=== PATIENT | male | born 1950 | race Caucasian/White ===

== ENCOUNTER → 2016-09-08 | Outpatient (CLI) | payer BC ==
--- NOTE | 2016-09-08 12:38 | XR ---
EXAMINATION TYPE: XR chest 2V DATE OF EXAM: 09/08/2016 12:13 PM COMPARISON: 12/22/2012 TECHNIQUE: PA and lateral views submitted. HISTORY: COPD, annual exam FINDINGS: The lungs are clear and there is no pneumothorax, pleural effusion, or focal pneumonia. Arthropathy of the shoulders noted. IMPRESSION: 1. No acute process.
== END | disposition home or self-care (01) ==
LOC: RADXRMAIN 11:55
PROVIDERS: ATTEND Family Medicine
DX: J44.9 Chronic obstructive pulmonary disease, unspecified (principal)
CPT/HCPCS: 71020

== ENCOUNTER → 2017-01-06 | Outpatient (CLI) | payer MEDICARE ==
--- NOTE | 2017-01-06 09:31 | US ---
EXAMINATION TYPE: US duplex aorta DATE OF EXAM: 01/06/2017 COMPARISON: NONE CLINICAL HISTORY: Z13.9 screening. screening for AAA EXAM MEASUREMENTS: Abdominal Aorta: Proximal: 2.0 x 2.1cm Mid: 1.5 x 1.4cm Distal: 1.9 x 2.1cm Bifurcation: Right: 1.0 x 0.9cm Left: 1.2 x 1.3cm *Technical limitations due to large amount of overlying bowel content. Portions of aorta are obscured . Calcifications noted throughout aorta. IMPRESSION: Limited study without definite aneurysm seen.
== END | disposition home or self-care (01) ==
LOC: RADUSWWP 08:59
PROVIDERS: ATTEND Family Medicine
DX: Z13.9 Encounter for screening, unspecified (principal)
CPT/HCPCS: 93979

== ENCOUNTER → 2018-06-08 | Outpatient (CLI) | payer MEDICARE ==
--- NOTE | 2018-06-08 11:16 | ECHOS ---
STRESS ECHOCARDIOGRAM DATE OF SERVICE: 06/08/2018 INDICATIONS: Palpitations, chest pain. MEDICATIONS: Crestor, Aspirin. BASELINE HEART RATE: 75 BASELINE BLOOD PRESSURE: 123/96 MAXIMUM HEART RATE: 136 MAXIMUM BLOOD PRESSURE: 209/52 85% MPHR: 130 100% MPHR: 153 METS: 11 MAXIMUM STAGE REACHED: IV TOTAL EXERCISE TIME: 10 minutes CLINICAL INFORMATION: Baseline EKG shows sinus rhythm, normal axis, normal intervals with poor R-wave progression. Patient exercised on Uche protocol for a total of 10 minutes achieving 11 METs, 89% of predicted maximal heart rate without chest pain. At peak exercise, there was [address]-segment depression noted in the inferolateral leads. Baseline echo shows normal left ventricular size, wall motion and systolic function. Postexercise, there is normal hyperdynamic response of all segments of myocardium noted. The patient has significant prolapse of the posterior mitral leaflet. CONCLUSIONS: 1. Excellent exercise tolerance. 2. Abnormal stress test by EKG criteria. 3. No evidence of ischemia. 4. Prolapse of the posterior mitral leaflet noted. Consider a 2D echo and transesophageal echo if clinically indicated. MMODL / IJN: [id number] /
--- NOTE | 2018-06-17 11:55 | HM ---
HOLTER MONITOR REPORT A 24-hour Holter monitor INDICATION: Palpitation. The patient was monitored for 24 hours. The baseline rhythm appeared to be a sinus mechanism with a minimum heart rate of 51 beats per minute, max heart rate 128 beats per and average heart rate of 74 beats per minute. Ventricular ectopic events presented in less than 1% of the total beats count and presented as an isolated PVCs and trigeminy. Supraventricular ectopic events presented in less than 1% of total beats count and presented as an isolated PACs. No evidence of sinus pause or sinus arrest. CONCLUSION: 1. Sinus rhythm as a baseline mechanism. 2. Rare ventricular ectopic events. 3. Rare supraventricular ectopic events. 4. There is no evidence of any tachy or bradyarrhythmia noted. 5. The patient did not have any evidence of sinus pause or sinus arrest. 6. The patient did not have any advanced AV block. MMRE / LI: [id number] /
== END ==
LOC: RADNMMAIN 09:52
PROVIDERS: ATTEND Family Medicine
DX: R00.2 Palpitations (principal)
CPT/HCPCS: 93225; 93226; 93351

== ENCOUNTER → 2018-06-08 | Outpatient (CLI) | payer MEDICARE ==
[2018-06-08 15:53] LABS: LDL Cholesterol,Calculated 129.4 mg/dL (0.0-131.0); VLDL Calculation 26.6 mg/dL (5.00-40.00)
== END | disposition home or self-care (01) ==
LOC: LABWHC1 10:55
PROVIDERS: ATTEND Psychiatry & Neurology Neurology
DX: E78.5 Hyperlipidemia, unspecified (principal)
CPT/HCPCS: 36415; 80061

== ENCOUNTER → 2018-08-09 | Outpatient (CLI) | payer MEDICARE ==
--- NOTE | 2018-08-09 15:42 | XR ---
EXAMINATION TYPE: XR chest 2V DATE OF EXAM: 08/09/2018 COMPARISON: 09/08/2016 TECHNIQUE: PA and lateral views submitted. HISTORY: Cough and lower rib FINDINGS: The lungs are clear and there is no pneumothorax, pleural effusion, or focal pneumonia. No overt fa ilure. Small lucent lesion involving the right humeral head stable from 2017 and likely benign. This has a nonspecific appearance and could be correlated with bone scan as clinically warranted. IMPRESSION: 1. No acute process.
== END | disposition home or self-care (01) ==
LOC: RADXRMAIN 15:21
PROVIDERS: ATTEND Family Medicine
DX: R07.81 Pleurodynia (principal)
CPT/HCPCS: 71046

== ENCOUNTER → 2018-08-17 | Outpatient (CLI) | payer MEDICARE ==
--- NOTE | 2018-08-17 16:43 | NM ---
EXAMINATION TYPE: NM bone scan whole body DATE OF EXAM: 08/17/2018 COMPARISON: Chest x-ray dated 08/09/2018 HISTORY: Abnormal chest x-ray, bone cyst Delayed whole-body scanning was performed following the injection of 25.2 mCi Tc 99m MDP. Images acq uired 4 hours post injection. FINDINGS: There is increased uptake within the proximal right humerus which may correlate with the focus seen o n chest x-ray the proximal humerus. There is a focus of increased uptake also noted at the anterior l eft eighth rib. Uptake in the knees, wrists, elbows, shoulders is likely degenerative. Soft tissue up take is normal. IMPRESSION: Correlate for possible history of trauma to the left eighth rib. Nonspecific increased mild uptake in the proximal right humerus, shoulder MRI may be of benefit. Consider dedicated right shoulder imagin g.
== END | disposition home or self-care (01) ==
LOC: RADNMMAIN 11:02
PROVIDERS: ATTEND Family Medicine
DX: M85.60 Other cyst of bone, unspecified site (principal)
CPT/HCPCS: 78306; A9503

== ENCOUNTER → 2019-01-30 | Outpatient (CLI) | payer MEDICARE ==
--- NOTE | 2019-01-30 12:42 | MR ---
EXAMINATION TYPE: MR shoulder RT wo con DATE OF EXAM: 01/30/2019 COMPARISON: None HISTORY: Right shoulder pain TECHNIQUE: Multiplanar, multisequence imaging of the right shoulder is performed without contrast. FINDINGS: Rotator Cuff: Abnormal increased signal present within the rotator cuff peripherally. No evident retr action. Acromioclavicular Joint: Hypertrophic changes causes mass effect on the musculotendinous junction of supraspinatus, there is fluid signal subacromial subdeltoid bursa Glenohumeral Joint: Intact Labrum: The labrum appears grossly intact given limitation of non-arthrogram study. Biceps Tendon: The long head of biceps is in normal location within bicipital groove peripherally but is partially perched more centrally. Bone marrow signal: There are pseudocysts, possible geodes within the humeral head. Other: Distal acromial spur is noted. IMPRESSION: Correlate for impingement. There is tendinosis within the rotator cuff tendon, possible intrasubstanc e tear.
== END | disposition home or self-care (01) ==
LOC: RADMRIMAIN 09:37
PROVIDERS: ATTEND Orthopaedic Surgery
DX: M67.813 Other specified disorders of tendon, right shoulder (principal)

== ENCOUNTER → 2020-08-13 | Outpatient (CLI) | payer MEDICARE ==
--- NOTE | 2020-08-14 11:50 | ECHOF ---
Referral Reason:I34.1 nonrheumatic mitral valve prolapse MEASUREMENTS -------- HEIGHT: 170.2 cm WEIGHT: 68.0 kg BP: RVIDd: 2.7 cm (< 3.3) IVSd: 1.2 cm (0.6 - 1.1) LVIDd: 4.1 cm (3.9 - 5.3) LVPWd: 1.2 cm (0.6 - 1.1) IVSs: 1.8 cm LVIDs: 2.0 cm LVPWs: 2.0 cm LAESV Index (A-L): 28.16 ml/m Ao Diam: 3.5 cm (2.0 - 3.7) AV Cusp: 2.3 cm (1.5 - 2.6) LA Diam: 3.5 cm (2.7 - 3.8) MV EXCURSION: 22.486 mm (> 18.000) MV EF SLOPE: 88 mm/s (70 - 150) EPSS: 0.7 cm MV E Ranulfo: 0.79 m/s MV DecT: 207 ms MV A Ranulfo: 0.92 m/s MV E/A Ratio: 0.86 AR PHT: 452 ms RAP: 5.00 mmHg RVSP: 22.26 mmHg FINDINGS -------- This was a technically good study. The left ventricular size is normal. There is mild concentric left ventricular hypertrophy. Overa ll left ventricular systolic function is normal with, an EF between 55 - 60 %. The diastolic fillin g pattern is normal for the age of the patient 13.97. The right ventricle is normal in size. The left atrial size is normal. Normal LA size by volume 22+/-6 ml/m2. The right atrial size is normal. The aortic valve is trileaflet and appears structurally normal. There is mild aortic regurgitation. Utmx-ar-[id number] mitral regurgitation is present. There is mild mitral valve prolapse of the junior accounting clerk ior leaflet. There is an echo dense structure attached to the posterior mitral valve leaflet. The tricuspid valve appears structurally normal. Mild tricuspid regurgitation present. Right vent ricular systolic pressure is normal at < 35 mmHg. There is no pulmonic regurgitation present. The aortic root size is normal. Normal inferior vena cava with normal inspiratory collapse consistent with estimated right atrial pre ssure of 5 mmHg. There is no pericardial effusion. CONCLUSIONS -------- 1. The left ventricular size is normal. 2. There is mild concentric left ventricular hypertrophy. 3. Overall left ventricular systolic function is normal with, an EF between 55 - 60 %. 4. The diastolic filling pattern is normal for the age of the patient 13.97 5. There is mild aortic regurgitation. 6. Kefc-gj-atfkhyuq mitral regurgitation is present. 7. There is mild mitral valve prolapse of the posterior leaflet. 8. There is an echo dense structure attached to the posterior mitral valve leaflet. 9. Mild tricuspid regurgitation present. 10. There is no pericardial effusion. FAMILY PRACTICE PHYSICIAN: Ashley Ohara RDCS
== END | disposition home or self-care (01) ==
LOC: RADECHMAIN 14:25
PROVIDERS: ATTEND Family Medicine
DX: I08.3 Combined rheumatic disorders of mitral, aortic and tricuspid valves (principal)
CPT/HCPCS: 93306

== ENCOUNTER 2022-05-01 09:07 | Day surgery (SDC) | payer MEDICARE ==
[2022-04-29 12:47] VITALS: BMI 23.5
[~2022-05-01 09:07] MED LIST: LACTATED RINGERS 1,000 ML IV SCH; LIDOCAINE 1% (10MG/ML) FOR IV START INTRADERMA PRN
[2022-05-01 10:49] VITALS: RESP 16; TEMP 97
[2022-05-01] MEDS ORDERED: PROPOFOL 10 MG/ML 20 ML VIAL IV ONE (11:30)
[2022-05-01] MEDS ORDERED: LIDOCAINE 2% INJ 20 MG/ML (2 ML VIAL) ONE (11:30)
--- NOTE | 2022-05-01 11:41 | P.PCN ---
Date of Procedure: 05/01/22 Procedure(s) Performed: BRIEF HISTORY: Patient is a 71-year-old, pleasant, white male with long-standing history of GERD and hiatal hernia scheduled for an upper endoscopy as he has been having worsening symptoms of epigastric discomfort on and off for the last few weeks duration. He is maintained on omeprazole 20 mg daily for 20 years.. PROCEDURE PERFORMED: Esophagogastroduodenoscopy with biopsy. PREOPERATIVE DIAGNOSIS: Long-standing history of GERD with worsening symptoms lately. IV sedation per anesthesia. PROCEDURE: After informed consent was obtained, the patient was brought into the endoscopy unit. IV sedation was administered by Anesthesia under continuous monitoring. Initially the Olympus GIF-140 video endoscope was inserted into the mouth. Esophagus intubated without any difficulty. It was gradually advanced into the stomach and duodenum and carefully examined. The bulb and the second part of the duodenum appeared normal. The scope at this time was withdrawn to the stomach, adequately insufflated with air, and upon careful examination, mucosa of the antrum, body, cardia and the fundus appeared normal. Multiple small gastric polyps were noted in the body the stomach which were biopsied. The scope was then withdrawn into the esophagus. Small hiatal hernia noted. The diaphragmatic impression was located at 40 cm from the incisors. The GE junction was located at 36 cm from the incisors. There was a 3 mm segment of Farfan's appearing mucosa just proximal to the GE junction which was biopsied. The rest of the esophagus appeared normal. There were no erosions or ulcerations seen and the patient tolerated the procedure well. IMPRESSION: 1. Small hiatal hernia. 2. Multiple small gastric polyps status post biopsy. 3. Short segment Farfan's esophagus status post biopsy RECOMMENDATIONS: The findings of this examination were discussed with the patient as well as his family.. He was advised to follow with the biopsy results. In the meantime I suggested that he increase omeprazole to 20 mg twice daily and taken half hour before breakfast and dinnertime and follow antireflux measures. Educated about diet modification and small frequent meals. If the biopsy confirms the presence of Farfan's esophagus he can have a repeat upper endoscopy in 3 years.
[2022-05-01 11:48] VITALS: PULSE 60
[2022-05-01 12:01] VITALS: BP 120/59
== END 2022-05-01 12:24 | disposition home or self-care (01) ==
LOC: ORWHC2ENDO 09:07
PROVIDERS: ATTEND Internal Medicine Gastroenterology
DX: K31.7 Polyp of stomach and duodenum (principal); K21.00 Gastro-esophageal reflux disease with esophagitis, without bleeding; K44.9 Diaphragmatic hernia without obstruction or gangrene; K22.70 Barrett's esophagus without dysplasia; I34.1 Nonrheumatic mitral (valve) prolapse; J44.9 Chronic obstructive pulmonary disease, unspecified; F17.290 Nicotine dependence, other tobacco product, uncomplicated; Z79.82 Long term (current) use of aspirin; Z91.040 Latex allergy status; Z86.73 Personal history of transient ischemic attack (TIA), and cerebral infarction without residual deficits; Z79.899 Other long term (current) drug therapy
CPT/HCPCS: 88305; 43239; J2704; J2001

== ENCOUNTER → 2022-07-20 | Outpatient (CLI) | payer MEDICARE ==
[2022-07-20 08:11] LABS: African American GFR (CKD) >90 (>60 ml/min/1.73 sqM); Blood Urea Nitrogen 7 mg/dL (9-20); Non-African American GFR(CKD) 89 (>60 ml/min/1.73 sqM)
--- NOTE | 2022-07-20 08:46 | CT ---
EXAMINATION TYPE: CT abdomen w con DATE OF EXAM: 07/20/2022 COMPARISON: None HISTORY: Epigastric pain CT DLP: 609 mGycm CONTRAST: CT scan of the abdomen is performed with Oral Contrast and with IV Contrast, patient injected with 10 0 mL of Isovue 300. FINDINGS: LUNG BASES-: No visible nodule. No infiltrate. LIVER/GB: No calcified gallstones. No space occupying hepatic lesion. Biliary tree is of normal ca liber. PANCREAS: No inflammation. No distinct mass. SPLEEN: No splenic enlargement. No lesion seen. ADRENALS: No nodule. No thickening. KIDNEYS/BLADDER: No hydronephrosis. No nephrolithiasis. No distinct renal mass. The urinary bladde r is distended however partially imaged. The dome of the bladder extends to the L4-5 level. BOWEL: Visualized bowel loops LYMPH NODES: No greater than 1cm abdominal or pelvic lymph nodes are appreciated. AORTA: No significant abnormality. OSSEOUS STRUCTURES: No significant abnormality is seen. OTHER: No significant additional abnormality is seen. IMPRESSION: 1. Urinary bladder distention. Otherwise unremarkable study.
== END | disposition home or self-care (01) ==
LOC: RADCTMAIN 07:28
PROVIDERS: ATTEND Internal Medicine Gastroenterology
DX: N32.89 Other specified disorders of bladder (principal); R10.13 Epigastric pain
CPT/HCPCS: 82565; 84520; 74160; 36415; Q9967

== ENCOUNTER 2024-08-23 08:25 | Day surgery (SDC) | payer MEDICARE ==
[2024-08-23 08:54] VITALS: RESP 16; TEMP 97.5
[2024-08-23] MEDS ORDERED: SODIUM CHLORIDE 0.9% 500 ML 500 ML IV SCH (09:15)
[2024-08-23] MEDS: BENZOCAINE SPRAY 1 EACH MUCOUS MEM ONE (09:49)
[2024-08-23] MEDS: fentaNYL (PF) 50 MCG/ML 2 ML AMP IVP ONE (09:50)
[2024-08-23] MEDS: MIDAZOLAM 2 MG/2 ML VIAL IVP ONE (09:50)
[2024-08-23] MEDS: SODIUM CHLORIDE 0.9% 500 ML 500 ML IV ONE (10:05)
[2024-08-23 18:09] VITALS: BP 121/61; PULSE 61
--- NOTE | 2024-08-24 04:10 | ECHOT ---
TRANSESOPHAGEAL ECHOCARDIOGRAM INDICATION: Mitral regurgitation. PROCEDURE NOTE: Transesophageal echocardiogram was performed in left lateral position using an Omniplane probe. Local and IV sedation were obtained using Xylocaine spray, 2 mg of Versed, and 50 mcg of fentanyl. The patient tolerated the procedure well without any obvious immediate complications. FINDINGS: 1. 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 Left atrium appears enlarged. Right atrium and right ventricle seen within normal limits. 2. Left ventricle appears normal size with mild diffuse global hypokinesis with an ejection fraction of around 50%. Aortic valve is a 3-leaflet valve. There is mild aortic regurgitation. Aortic root appears normal. There is mild tricuspid regurgitation. Interatrial septum, there is no evidence of vufz-nz-gawmx shunt by color-flow Doppler or frlqt-mu-sxzr shunt by agitated saline contrast study. CONCLUSION: 1. Severe anteriorly directed mitral regurgitation secondary to prolapse of the posterior mitral leaflet. 2. Ejection fraction is around 50%. I am going to perform a left heart catheterization and refer the patient for mitral valve repair. MMODL / IJN: [id number] /
== END 2024-08-23 11:25 | disposition home or self-care (01) ==
LOC: CATHCVL 08:25
PROVIDERS: ATTEND Internal Medicine Cardiovascular Disease
DX: I08.3 Combined rheumatic disorders of mitral, aortic and tricuspid valves (principal); E78.5 Hyperlipidemia, unspecified; I10 Essential (primary) hypertension; Z87.891 Personal history of nicotine dependence; Z79.82 Long term (current) use of aspirin; Z79.899 Other long term (current) drug therapy
CPT/HCPCS: 93312; 93320; 93325; J2250; J3010